=== PATIENT | female | born 1995 | race Caucasian/White ===

== ENCOUNTER 2025-01-03 16:30 | Emergency (ER) | payer SELFPAY ==
[2025-01-03 16:32] VITALS: BP 130/85; PULSE 101; RESP 18; TEMP 36.8; O2SAT 99
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
[2025-01-03] MEDS: ketorolac 30 mg/mL INJ 60 MG IM (16:41)
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
== END 2025-01-03 17:58 | disposition home or self-care (01) ==
PROVIDERS: Emergency Provider Family Medicine
DX: S43.401A Unspecified sprain of right shoulder joint, initial encounter (principal); S53.401A Unspecified sprain of right elbow, initial encounter; X58.XXXA Exposure to other specified factors, initial encounter
CPT/HCPCS: 73030; 73090; 96372; 99284; J1885